=== PATIENT | female | born 1970 | race Caucasian/White ===

== ENCOUNTER 2016-10-25 13:33 | Emergency (ER) | payer BC ==
[2016-10-25 14:12] VITALS: BP 115/59
--- NOTE | 2016-10-25 14:46 | UC ---
Knee Pain HPI - History of Current Complaint Chief Complaint: UCLowerExtremity Stated Complaint: LEFT KNEE PAIN Time Seen by Provider: 10/25/16 14:40 Hx Obtained From: Patient Hx Last Menstrual Period: 10/01/16 ?: No Onset/Duration: Sudden Onset - around Easter after a longer run, Still Present - left knee Severity Initially: Moderate Severity Currently: Moderate Character: Sharp - with certain movements, especially going down hills., Aching Aggravating Factor(s): Weight Bearing - walking down hill, Nothing Alleviating Factor(s): Rest Associated Signs And Symptoms: Positive: Swelling - and a feeling of stiffness. Able to Bear Weight: Yes - Risk Factors Septic Arthritis Risk Factor: Negative Gout Risk Factor: Negative - Allergies/Home Medications Allergies/Adverse Reactions: Allergies Allergy/AdvReac Type Severity Reaction Status Date / Time Penicillins Allergy Hives Verified 10/25/16 14:12 Home Medications: Home Medications Ibuprofen TAB* [Advil TAB*] 600 mg PO Q6H PRN 10/25/16 [History Confirmed ] PMH/Surg Hx/FS Hx/Imm Hx Previously Healthy: Yes Endocrine History Of: Denies: Diabetes, Thyroid Disease Respiratory History Of: Denies: Asthma - Surgical History Surgical History: Yes Surgery Procedure, Year, and Place: 2012 bladder sling - Family History Known Family History: Positive: Cardiac Disease Negative: Hypertension, Diabetes - Social History Occupation: Employed Full-time Lives: With Family Alcohol Use: Occasionally Substance Use Type: None Smoking Status (MU): Never Smoked Tobacco Have You Smoked in the Last Year: No Review of Systems Musculoskeletal: Arthralgia All Other Systems Reviewed And Are Negative: Yes Physical Exam Triage Information Reviewed: Yes Appearance: Well-Appearing, No Pain Distress, Well-Nourished Vital Signs: Initial Vital Signs Temp 98.3 F 10/25/16 14:06 Pulse 68 10/25/16 14:06 Resp 16 10/25/16 14:06 BP 115/59 10/25/16 14:06 Pulse Ox 100 10/25/16 14:06 Vital Signs Reviewed: Yes Eyes: Positive: Conjunctiva Clear Neck exam: Normal Respiratory Exam: Normal Cardiovascular Exam: Normal Abdomen Description: Positive: Nontender, No Organomegaly Bowel Sounds: Positive: Present Musculoskeletal: Positive: Strength Intact, ROM Intact, Other: - Tenderness over the distal hamstring tendon medially. Ligaments intact. No effusion. Negative McMurrays. Some crepitance. Neurological Exam: Normal Psychological Exam: Normal Skin Exam: Normal Knee Pain Course/Dx - Differential Dx/Diagnosis Differential Diagnosis/HQI/PQRI: Patellofemoral Syndrome, Sprain, Strain, Tendonitis Provider Diagnoses: Hamstring tendonitis left knee Discharge - Discharge Plan Condition: Stable Disposition: HOME Patient Education Materials: Tendinitis (ED) Additional Instructions: Please go to PT to fix muscle imbalances.
== END 2016-10-25 15:08 | disposition home or self-care (01) ==
LOC: UCCORT 13:33
DX: M76.9 Unspecified enthesopathy, lower limb, excluding foot (principal); Z88.0 Allergy status to penicillin
CPT/HCPCS: 99201; G0463

== ENCOUNTER 2019-03-25 17:09 | Emergency (ER) | payer BC ==
[2019-03-25] MEDS ORDERED: Ibuprofen TAB* 600 MG PO ONE (17:24)
[2019-03-25] MEDS ORDERED: Tetan/Diph/Pertus SYR(Tdap)* 0.5 ML SYR(BOOSTRIX) use SYR contains LATEX IM ONE (17:25)
[2019-03-25] MEDS ORDERED: Sulfamethox/Trimethoprim DS 800/160* TAB PO ONE (17:28)
[2019-03-25] MEDS ORDERED: Clindamycin CAP* 150 MG PO ONE (17:29)
--- NOTE | 2019-03-25 17:34 | UC ---
Bite Injury/Animal HPI - HPI Summary HPI Summary: 48-year-old woman comes with a chief complaint of dog bite to the left forearm. This happened just prior to arrival. It was a [place]. Patient had quite a bit of bleeding from the wounds. She has swelling in the forearm and pain. She has pain with range of motion. Not sure when her last tetanus was. She is allergic to penicillin. - History of Current Complaint Chief Complaint: UCBiteInjury Stated Complaint: LEFT ARM DOG BITE Time Seen by Provider: 03/25/19 17:24 Hx Last Menstrual Period: Mar 02 Pain Intensity: 10 - Allergies/Home Medications Allergies/Adverse Reactions: Allergies Allergy/AdvReac Type Severity Reaction Status Date / Time Penicillins Allergy Hives Verified 03/25/19 17:30 PMH/Surg Hx/FS Hx/Imm Hx Previously Healthy: Yes - Surgical History Surgical History: Yes Surgery Procedure, Year, and Place: 2012 bladder sling - Family History Known Family History: Positive: Cardiac Disease Negative: Hypertension, Diabetes - Social History Alcohol Use: Occasionally Substance Use Type: None Smoking Status (MU): Never Smoked Tobacco Have You Smoked in the Last Year: No - Immunization History Most Recent Tetanus Shot: unknown Review of Systems All Other Systems Reviewed And Are Negative: Yes Constitutional: Positive: Negative Skin: Positive: Other - see hpi Eyes: Positive: Negative ENT: Positive: Negative Respiratory: Positive: Negative Cardiovascular: Positive: Negative Gastrointestinal: Positive: Negative Motor: Positive: Other - see hpi Neurovascular: Positive: Negative Musculoskeletal: Positive: Other: - see hpi Neurological: Positive: Negative Psychological: Positive: Negative Is Patient Immunocompromised?: No Physical Exam Triage Information Reviewed: Yes Appearance: Well-Appearing, Well-Nourished, Pain Distress - moderate Vital Signs: Initial Vital Signs Temp 99.6 F 03/25/19 17:18 Pulse 74 03/25/19 17:18 Resp 20 03/25/19 17:18 BP 137/65 03/25/19 17:18 Pulse Ox 100 03/25/19 17:18 Vital Signs Reviewed: Yes Eye Exam: Normal Eyes: Positive: Conjunctiva Clear Neck: Positive: Supple Respiratory: Positive: No respiratory distress Musculoskeletal: Positive: Other: - Left forearm has swelling around the lacerations. Elbow has full range of motion. Normal radial pulse. Normal capillary refill distally. Fingers wrists have full range of motion but there is increased pain in the forearm with range of motion. On passive range of motion of the wrist and fingers patient has no complaint of pain. Normal sensation distally and on the forearm. Neurological: Positive: Alert Psychological: Positive: Age Appropriate Behavior Skin: Positive: Other - There are 5 lacerations on the left forearm. The longest is 2 cm long and gaping at 1 cm wide. There is a second 1 that is 1.5 cm long To 3 mm. There is 1 cm long 0.5 cm wide. 2 smaller ones approximately 5 mm in length. There is serosanguineous drainage from all of them. Bite Injury Course/Dx - Course Course Of Treatment: The dog that bit the patient is the patient's dog and she reports the dog is up- to-date on immunizations. I discussed the x-rays with the patient and the orthopedist on-call Dr. Aranda. I do not see any fractures or any foreign bodies such as tooth. There is soft tissue fluid seen on the x-ray. Radiologist reading is pending. The wound was cleaned with irrigation by nursing. The longest laceration is sutured loosely with 2 6-0 Prolene so that rather than gapping at 1 cm it's gapping at 4 cm. I did not suture any other laceration. On exam patient has no pain with passive range of motion. No evidence of compartment syndrome at this time. I did discuss the signs and symptoms of compartment syndrome and also besides symptoms of infection with the patient leading her know that if she had either one of those she needed to get reevaluated again right away. Discussed the case with Dr. Aranda the orthopedist primary health organisation manager. Patient is allergic to penicillin therefore I chose Bactrim DS by mouth twice a day and combined with clindamycin 450 mg by mouth 3 times a day. Patient received her Tdap here in clinic. Wounds were dressed with antibiotic ointment with absorbable dressing by nursing and I placed a volar splint. Patient Norvasc intact after placement of volar splint. Plan is to follow-up with Dr. Aranda on March 29, 2019. Doctor yesterday and is primary health organisation manager until that time and the patient's been given the orthopedic number so that she can discuss her condition with Dr. Aranda if necessary. Also let the patient know that if she did get worse she needs to get reevaluated again right away. - Differential Dx/Diagnosis Provider Diagnosis: Dog bite of left forearm Discharge ED - Sign-Out/Discharge Documenting (check all that apply): Patient Departure All imaging exams completed and their final reports reviewed: No - Discharge Plan Condition: Stable Disposition: HOME Prescriptions: Clindamycin HCl 450 mg PO TID #60 capsule HYDROcodone/ACETAMIN 5-325 MG* [[place] 5-325 TAB*] 1 tab PO Q4H PRN #20 tab MDD 6 PRN Reason: Pain - Moderate Sulfamethox/Trimethoprim DS* [Bactrim DS 800/160 TAB*] 1 tab PO BID #13 tab Patient Education Materials: Animal Bite (ED), Care For Your Stitches (ED), Laceration (ED), Laceration Without Closure (ED), Crush Injury (ED) Forms: *Work Release Referrals: Nnamdi Duffy MD [Primary Care Provider] - Atilio Aranda MD [Medical Doctor] - Additional Instructions: FOLLOW UP WITH DR ARANDA, ORTHOPEDICS, ON 03/29/19. GET REEVALUATED SOONER IF NOT IMPROVING OR YOUR CONDITION WORSENS; PAIN, COMPARTMENT SYNDROME, INFECTION, FEVER, STREAKING, PUS DRAINAGE, YOU FEEL ILL, LOSS OF CIRCULATION, SENSATION OR STRENGTH OR ANY QUESTIONS OR CONCERNS. - Billing Disposition and Condition Condition: STABLE Disposition: Home
[2019-03-25] MEDS ORDERED: HYDROcodone/ACETAMIN 5-325 MG* 1 TAB PO ONE (17:58)
[2019-03-25] MEDS ORDERED: Lidocaine 1% MPF ** 5 ML VIAL INJ ONE (18:22)
[2019-03-25 19:54] VITALS: BP 105/64
--- NOTE | 2019-03-26 09:26 | UC ---
- Progress Note Progress Note: Patient Name: DERRELL MISHRA Medical Record#: [id number] Ordering Physician: Maged De Leon MD Acct.#: [id number] : 1970 Age: 48 Sex: F Location: [facility]RG[facility] Exam Date: 03/25/191728 ADM Status: [facility] Order Information: FOREARM LEFT 2 VWS Accession Number: [id number] CPT: 17562 Indication: Dog bite, left arm injury. 2 views of the left forearm demonstrates no fracture. Soft tissue air is noted from soft tissue injury. No foreign body is identified. IMPRESSION: No fracture is identified. Air is noted in the soft tissue from soft tissue injury. R0 Preliminary Imaging Read R0 <Electronically signed by Jeaneth Pulliam MD in OV> 03/26/19838 Dictated By: Jeaneth Pulliam MD Dictated Date/Time: 03/26/19833 Transcribed Date/Time: 03/26/19833 Copy to: CC:Nnamdi Duffy MD; Maged De Leon MD Imaging - [facility] Imaging - [facility] [address] [place] [address] ph ([phone]) ph ([phone]) ph ([phone]) This report is only to be considered final once signed by the Provider(s) as displayed in the "<Electronically Signed by >" field (s). Absence of a signature indicates the report is in a draft status and still needs to be finalized. In the event this document was created by someone other than the signing Provider, the individual initiating the document will be listed in the "Entered by:" or "Dictated by:" roche. 1 of 1 Course/Dx - Diagnoses Provider Diagnoses: Dog bite of left forearm Discharge ED - Sign-Out/Discharge Documenting (check all that apply): Post-Discharge Follow Up All imaging exams completed and their final reports reviewed: Yes - Discharge Plan Condition: Stable Disposition: HOME Prescriptions: Clindamycin HCl 450 mg PO TID #60 capsule HYDROcodone/ACETAMIN 5-325 MG* [[place] 5-325 TAB*] 1 tab PO Q4H PRN #20 tab MDD 6 PRN Reason: Pain - Moderate Sulfamethox/Trimethoprim DS* [Bactrim DS 800/160 TAB*] 1 tab PO BID #13 tab Patient Education Materials: Animal Bite (ED), Care For Your Stitches (ED), Laceration (ED), Laceration Without Closure (ED), Crush Injury (ED) Forms: *Work Release Referrals: Nnamdi Duffy MD [Primary Care Provider] - Atilio Pimentel MD [Medical Doctor] - Additional Instructions: FOLLOW UP WITH DR PIMENTEL, ORTHOPEDICS, ON 03/29/19. GET REEVALUATED SOONER IF NOT IMPROVING OR YOUR CONDITION WORSENS; PAIN, COMPARTMENT SYNDROME, INFECTION, FEVER, STREAKING, PUS DRAINAGE, YOU FEEL ILL, LOSS OF CIRCULATION, SENSATION OR STRENGTH OR ANY QUESTIONS OR CONCERNS. - Billing Disposition and Condition Condition: STABLE Disposition: Home
== END 2019-03-25 19:54 | disposition home or self-care (01) ==
LOC: UCCORT 17:09
DX: S51.852A Open bite of left forearm, initial encounter (principal); W54.0XXA Bitten by dog, initial encounter; Y92.9 Unspecified place or not applicable; Z23 Encounter for immunization; Z88.0 Allergy status to penicillin
CPT/HCPCS: 12001; 90471; 90715; 99212; 99213; A9270-GY; G0463